=== PATIENT | male | born 1985 | race American Indian/Alaskan Native ===

== ENCOUNTER 2021-10-11 19:55 | Emergency (ER) | payer SELFPAY ==
[2021-10-11 20:50] VITALS: BP 130/86
[2021-10-12 00:32] LABS: Amphetamine Screen,Urine PRESUMPTIVE POSITIVE; Benzodiazepines Screen,Urine PRESUMPTIVE NEGATIVE; Cannabinoid Screen,Urine PRESUMPTIVE POSITIVE; Cocaine Screen,Urine PRESUMPTIVE NEGATIVE; Methadone Screen,Urine PRESUMPTIVE NEGATIVE; Opiate Screen,Urine PRESUMPTIVE NEGATIVE
[2021-10-12 00:32] LABS: Basophils # (Auto) 0.1 K/mm3 (0.0-0.1); Basophils % (Auto) 1.2 % (0.0-1.8); Eosinophils % (Auto) 0.5 % (0.0-4.3); Hemoglobin 14.5 gm/dl (11.8-15.2); Lymphocytes # (Auto) 2.2 K/mm3 (1.2-5.4); Lymphocytes % (Auto) 45.5 % (13.4-35.0); Mean Corpuscular HGB Conc 35 % (32-34); Mean Corpuscular Volume 101 fl (84-94); Monocytes # (Auto) 0.4 K/mm3 (0.0-0.8); Monocytes % (Auto) 7.7 % (0.0-7.3); Platelet Count 321 K/mm3 (140-440); Red Blood Count 4.15 M/mm3 (3.65-5.03); Red Cell Distribution Width 12.9 % (13.2-15.2)
[2021-10-12 00:41] LABS: Color,Urine Yellow (Yellow)
[2021-10-12 00:43] LABS: Bacteria,Urine 1+ /HPF (Negative); Mucus,Urine 2+ /HPF
[2021-10-12 00:45] LABS: Alanine Aminotransferase 10 units/L (7-56); Blood Urea Nitrogen 14 mg/dL (9-20); Calcium 9.5 mg/dL (8.4-10.2); Hemolysis Index 25
[2021-10-12 00:46] LABS: BUN/Creatinine Ratio 20
[2021-10-12] MEDS ORDERED: cephALEXin 500 MG CAP PO ONE ×2 (05:00→09:25)
--- NOTE | 2021-10-12 05:02 | Emergency Department Report ---
ED Psych HPI - General Chief Complaint: Psych Stated Complaint: MENTAL HEALTH Time Seen by Provider: 10/11/21 23:54 Source: patient Mode of arrival: Ambulatory Limitations: No Limitations - History of Present Illness Initial Comments: Patient is a 36-year-old male presenting to ED with complaint of lack of energy, feelings of hopelessness and depression. States he recently lost his job and is homeless. He denies suicidal ideation. - Related Data Allergies Allergy/AdvReac Type Severity Reaction Status Date / Time No Known Allergies Allergy Verified 10/12/21 00:00 ED Review of Systems ROS: Stated complaint: MENTAL HEALTH Other details as noted in HPI Constitutional: denies: chills, fever Respiratory: denies: cough, shortness of breath, wheezing Cardiovascular: denies: chest pain, palpitations Gastrointestinal: denies: abdominal pain, nausea, diarrhea Genitourinary: denies: urgency, dysuria Musculoskeletal: denies: back pain, joint swelling, arthralgia Skin: denies: rash, lesions Neurological: denies: headache, weakness, paresthesias Psychiatric: depression. denies: auditory hallucinations, visual hallucinations, homicidal thoughts, suicidal thoughts ED Past Medical Hx - Past Medical History Previous Medical History?: No - Surgical History Past Surgical History?: No - Social History Smoking Status: Current Every Day Smoker Substance Use Type: None ED Physical Exam - General Limitations: No Limitations General appearance: alert, in no apparent distress - Head Head exam: Present: atraumatic, normocephalic - Respiratory Respiratory exam: Present: normal lung sounds bilaterally. Absent: respiratory distress - Cardiovascular Cardiovascular Exam: Present: regular rate, normal rhythm, normal heart sounds - GI/Abdominal GI/Abdominal exam: Present: soft. Absent: distended, tenderness - Rectal Rectal exam: Present: deferred - Neurological Exam Neurological exam: Present: alert, oriented X3 - Psychiatric Psychiatric exam: Present: normal affect, normal mood. Absent: homicidal idea tion, suicidal ideation - Skin Skin exam: Present: warm, dry, intact, normal color ED Course Vital Signs 10/11/21 10/12/21 20:49 00:04 Temperature 97.8 F Pulse Rate 95 H Respiratory 18 Rate Blood Pressure 130/86 O2 Sat by Pulse 100 97 Oximetry ED Medical Decision Making - Lab Data Result diagrams: 10/12/21 00:03 10/12/21 00:03 - Medical Decision Making Significant lab findings include UDS positive for marijuana and amphetamines. UDS with 23 WBCs and nitrite positive. GC/chlamydia pending. Oral Keflex ordered. Patient awaiting mental health evaluation. Critical care attestation.: If time is entered above; I have spent that time in minutes in the direct care of this critically ill patient, excluding procedure time. ED Disposition Clinical Impression: Hopelessness, Depression, Homelessness Disposition: 30 STILL A PATIENT Is pt being admited?: No Condition: Stable
--- NOTE | 2021-10-12 09:53 | Consultation ---
History of Present Illness - Reason for Consult Consult date: 10/12/21 Reason for consult: mental health evaluation - History of Present Psychiatric Illness The patient is a36 year old male with no psychiatric history who presents to the ED for mental health evaluation. The patient seen today. He is calm, and cooperative. The patient reports ongoing depression x1 month; states stressor such as recent job loss and homelessness. The patient denies any current suicida l/homicidal ideation and denies hallucinations. PAST PSYCHIATRIC HISTORY: Diagnoses: Denies Suicide attempts or Self-harm behavior: Denies Prior psychiatric hospitalizations: Denies Substance Abuse history: Denies Previous psychiatric medications tried: Denies Outpatient treatment: Denies PAST MEDICAL HISTORY: Family Psychiatric History: None reported SOCIAL HISTORY Marital Status: Single Living Arrangements: Homeless Employment Status: Unemployed Access to guns/weapons: Denies Education: some college History of Abuse: Denies Legal History: Unknown REVIEW OF SYSTEMS Constitutional: Negative for weight loss ENT: Negative for stridor Respiratory: Negative for cough or hemoptysis All other systems reviewed and are negative MENTAL STATUS General Appearance and Behavior: age appropriate, good eye contact, cooperative, Cooperation: Cooperative Psychomotor Behavior: within normal limits Mood: depressed Affect and affective range: Congruent with stated mood Thought Process: goal directed Thought Content: Reality oriented Speech: Normal volume and Regular rate and rhythm Suicidal Ideation: Denies Homicidal Ideation: Denies HI Hallucinations: Denies Impulse Control: intact Insight and Judgment: Limited Memory: Limited Attention: Distracted Orientation: alert and oriented x4 Assessment Major depressive disorder Treatment Plan Case management Continue home medications Setraline 25mg po daily Trazodone 50mg po QHS The patient is to get first dose of meds prior to leaving. Benefits and possible SE were explained to patient. She verbalizes understanding. Risks, benefits and alternatives of medications discussed with the patient, questions answered and consent obtained from patient. PSYCHOTHERAPY: Supportive psychotherapy provided MEDICAL: Per primary team DELIRIUM PRECAUTIONS: Please re-orient patient frequently, keep lights on during the day, and minimize benzodiazepines and opiates as these medications could worsen patient's confusion. COMMUNITY HEALTH COORDINATOR: Defer to primary DISPOSITION: Do not Recommend acute inpatient psychiatric hospitalization at this time. [facility] will provide patient with psychiatric outpatient resources. FOLLOW-UP: Will sign off. Thank you for the consult. Please contact with any questions and/or concerns Case discussed with Dr. Pollack who agrees with current disposition Medications and Allergies Allergies Allergy/AdvReac Type Severity Reaction Status Date / Time No Known Allergies Allergy Verified 10/12/21 00:00 Home Medications Medication Instructions Recorded Confirmed Last Taken Type Sertraline [Zoloft] 25 mg PO QDAY 30 Days #30 tab 10/12/21 Unknown Rx traZODone [Desyrel] 50 mg PO QHS 30 Days #30 tab 10/12/21 Unknown Rx Mental Status Exam - Vital signs Last Vital Signs Temp 97.7 F 10/12/21 09:18 Pulse 73 10/12/21 09:18 Resp 18 10/12/21 09:18 BP 130/86 10/11/21 20:49 Pulse Ox 100 10/12/21 09:18 Results Result Diagrams: 10/12/21 00:03 10/12/21 00:03 Abnormal lab results 10/11/21 10/12/21 10/12/21 Range/Units Unknown 00:03 00:03 MCV 101 H (84-94) fl MCH 35 H (28-32) pg MCHC 35 H (32-34) % RDW 12.9 L (13.2-15.2) % Lymph % (Auto) 45.5 H (13.4-35.0) % [place] % (Auto) 7.7 H (0.0-7.3) % Creatinine (0.8-1.3) mg/dL Urine WBC (Auto) 23.0 H (0.0-6.0) /HPF Salicylates < 0.3 L (2.8-20.0) mg/dL Acetaminophen (10.0-30.0) ug/mL 10/12/21 10/12/21 Range/Units 00:03 00:03 MCV (84-94) fl MCH (28-32) pg MCHC (32-34) % RDW (13.2-15.2) % Lymph % (Auto) (13.4-35.0) % [place] % (Auto) (0.0-7.3) % Creatinine 0.7 L (0.8-1.3) mg/dL Urine WBC (Auto) (0.0-6.0) /HPF Salicylates (2.8-20.0) mg/dL Acetaminophen 5.0 L (10.0-30.0) ug/mL All other labs normal.
== END 2021-10-12 13:51 | disposition still patient (30) ==
LOC: ED 19:55
DX: F32.A Depression, unspecified (principal); Z59.00 Homelessness unspecified; F17.200 Nicotine dependence, unspecified, uncomplicated; Z79.899 Other long term (current) drug therapy
CPT/HCPCS: 36415; 80053; 80307; 80320; 81001; 84443; 85025; 87076; 87086; 87186; 99284; G0480